=== PATIENT | female | born 1970 ===

== ENCOUNTER 2018-01-31 07:05 | Day surgery (SDC) | payer OTHER ==
[~2018-01-31 07:05] MED LIST: JANUMET XR 50-1 EAC1 PO
== END 2018-01-31 13:05 | disposition home or self-care (01) ==
LOC: CIR.AMB 07:05
DX: C54.1 Malignant neoplasm of endometrium (principal)

== ENCOUNTER 2018-02-25 11:04 | Inpatient (IN) | payer OTHER ==
[~2018-02-25] VITALS: Ht 160 cm; Wt 130.6 kg
[2018-02-25] MEDS ORDERED: AMARYL PO (11:41)
== END 2018-03-03 15:08 | DRG 741 ==
LOC: O/R 02-28 05:36 → OB/GYN 02-28 05:36 → SURH 02-28 09:45 → OB/GYN 02-28 14:10
PROVIDERS: Specialist
PROC: 0UT20ZZ Resection of Bilateral Ovaries, Open Approach (ICD-10-PCS; 2018-02-28)
PROC: 0UT70ZZ Resection of Bilateral Fallopian Tubes, Open Approach (ICD-10-PCS; 2018-02-28)
PROC: 0UT90ZZ Resection of Uterus, Open Approach (ICD-10-PCS; principal; 2018-02-28 09:45)
DX: C54.1 Malignant neoplasm of endometrium (principal); N92.1 Excessive and frequent menstruation with irregular cycle; I10 Essential (primary) hypertension; E11.9 Type 2 diabetes mellitus without complications